=== PATIENT | female | born 1990 | race Caucasian/White ===

== ENCOUNTER 2017-03-23 01:33 | Emergency (ER) | payer OTHER ==
[~2017-03-23] VITALS: Ht 162.6 cm; Wt 78.7 kg
[2017-03-23 01:47] VITALS: TEMP 37; Ht 162.6 cm; Wt 78.7 kg
[2017-03-23] MEDS ORDERED: IBUP-1451 PO (02:11)
[2017-03-23 02:29] LABS: BUN/CREATININE RATIO 13.7 (10-20); CALCIUM 8.9 mg/dl (8.5-10.1); CREATININE 0.86 mg/dl (0.60-1.20); POTASSIUM 3.4 mmol/L (3.5-5.1)
[2017-03-23] MEDS ORDERED: LORAZEPAM 1 MG TAB SL STA (03:01)
[2017-03-23 08:35] VITALS: BP 111/76; PULSE 98; O2SAT 97
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
== END 2017-03-23 08:49 | disposition home or self-care (01) ==
LOC: C.EDA 01:34
DX: F10.129 Alcohol abuse with intoxication, unspecified (principal); Y90.8 Blood alcohol level of 240 mg/100 ml or more; F17.200 Nicotine dependence, unspecified, uncomplicated

== ENCOUNTER → 2017-11-21 | Outpatient (CLI) | payer OTHER ==
[~2017-11-21] MED LIST: IBUP-1451 PO
== END | disposition home or self-care (01) ==
LOC: C.LABSPEC 15:50
PROVIDERS: ATTEND Obstetrics & Gynecology
DX: Z34.01 Encounter for supervision of normal first pregnancy, first trimester (principal); Z3A.00 Weeks of gestation of pregnancy not specified

== ENCOUNTER → 2017-11-29 | Outpatient (CLI) | payer OTHER ==
[2017-11-29 14:37] LABS: BASO % 0.2 %; BASO ABS # 0.02 K/uL (0-0.2); EOS % 1.6 %; EOS ABS # 0.13 K/uL (0-0.5); HEMATOCRIT 36.1 % (37-47); HEMOGLOBIN 12.5 g/dL (12.0-16.0); IG# 0.01 K/uL (0.00-0.02); LYMPH % 28.2 %; LYMPH ABS # 2.27 K/uL (1.2-3.4); MEAN CELL VOLUME 86.2 fL (80-100); MEAN CORPUSCULAR HEMOGLOBIN 29.8 pg (25-34); MEAN CORPUSCULAR HGB CONC 34.6 g/dl (32-36); MEAN PLATELET VOLUME 11.6 fL (7.4-10.4); MONO % 7.5 %; NEUT % 62.4 %; NEUT ABS # 5.02 K/uL (1.4-6.5); PLATELET COUNT 242 K/uL (130-400); RED CELL DISTRIBUTION WIDTH CV 13.1 % (11.5-14.5); RED CELL DISTRIBUTION WIDTH SD 41.7 fL (36.4-46.3); WHITE BLOOD COUNT 8.05 K/uL (4.8-10.8)
== END | disposition home or self-care (01) ==
LOC: C.LAB1850 12:46
PROVIDERS: ATTEND Obstetrics & Gynecology
DX: Z34.01 Encounter for supervision of normal first pregnancy, first trimester (principal)

== ENCOUNTER → 2017-11-29 | Outpatient (CLI) | payer OTHER | END | disposition home or self-care (01) | LOC: C.LABSPEC 15:39 | PROVIDERS: ATTEND Obstetrics & Gynecology | DX: Z34.01 Encounter for supervision of normal first pregnancy, first trimester (principal) ==

== ENCOUNTER 2021-05-28 17:22 | Observation (INO) ==
[2021-05-28] MEDS ORDERED: MoRPHine SULFATE 4 MG/ML 1 ML CARP\\VIAL IV STA (20:04)
[2021-05-28] MEDS ORDERED: SODIUM CHLORIDE 0.9% 500 ML IV ONE (20:05)
--- NOTE | 2021-05-28 20:09 | Emergency Department Note ---
Impression & Plan Facial swelling, Odontogenic infection of jaw ED Provider Note NAME: GRETCHEN LEVI AGE: 30 SEX: F : 1990 ARRIVES VIA: Walk-In INFORMANT: Patient ED PROVIDER(S): Radames Jerome DO CHIEF COMPLAINT: left sided jaw swelling HPI: Patient is a 30-year-old female who presents to the ER as she chipped her tooth about a week ago chewing on seeds. 2 days ago she started having significant amount of pain on the left lower jaw. This morning she woke up and she has a moderate amount of swelling. She has been on clindamycin but has been worsening. Admits pain with movement of the jaw. Pain is a 6 out of 10. No headache or change in vision. No chest pain or shortness of breath. No nausea vomiting or diarrhea. No fevers. No dysuria urgency or frequency. She does have a dentist but cannot get into them until next week. ROS: See above HPI for pertinent positives & negatives. A total of 10 systems reviewed and were otherwise negative. PAST MEDICAL HISTORY:See Below PAST SURGICAL HISTORY:See Below FAMILY HISTORY:See Below SOCIAL HISTORY:See Below HOME MEDICATIONS:See Below ALLERGIES:See Below VITALS:See Below PHYSICAL EXAMINATION: GENERAL: Sitting up in bed, alert, well appearing, well nourished, no distress, non-toxic EYE EXAM: normal conjunctiva. PERRL and EOM's grossly intact. OROPHARYNX: Left third molar is broken with a significant amount of swelling below and lateral tracking to the jawline NECK: supple, no nuchal rigidity, swelling below the left lower jaw. LUNGS: Clear to auscultation. Normal chest wall mechanics HEART: no murmurs, S1 normal and S2 normal ABDOMEN: abdomen soft, non-tender, normo-active bowel sounds, no masses, no rebound or guarding. UPPER EXTREMITIES: upper extremities are grossly normal. LOWER EXTREMITIES: No pitting edema. NEURO EXAM: Normal sensorium, cranial nerves II-XII grossly intact, normal spe ech, no gross weakness of arms, no gross weakness of legs. MEDICAL DECISION MAKING: Patient is a 30-year-old female who presents the ER for left jaw swelling. IV was established blood was obtained. Labs show no significant leukocytosis or anemia. BMP was unremarkable. Covid was negative. CT of the face shows a significant mount of swelling over the left lower jaw. This progressed while in the ER. Initially discussed with Dr. Paula in regards to following up as an outpatient he was agreeable. Reevaluated the patient and she had worsening swelling. She is given steroids and antibiotics. Discussed with the patient and admitted her to the hospitalist. Had secondary repaged Dr. Paula to let him know that she was being admitted. Patient was given multiple rounds of IV narcotics. Triage Nursing notes reviewed. Limited review of prior medical records performed Vital Signs: reviewed and remarkable for HTN Differential diagnosis: Dental caries, dental abscess, Lud[place]igs angina, Vincent angina, dental fracture, facial cellulitis, parotitis, osteomyelitis, sinus infection, peritonsillar abscess. ER treatment provided: See below Diagnostics interpreted by me: ECG: none Cardiac Monitoring: An order was placed for continuous cardiac monitoring. The monitor shows a rate of 89 with sinus rhythm. Laboratory studies: As stated above and show below. Imaging studies: CT shows significant swelling of the left lower jaw Consultation(s): Discussed with Dr. Christoph Paula as discussed above Discussed with the hospitalist for further evaluation Procedures: none Critical Care: None Past Med/Surg History Medical History Alcohol use disorder Low-lying placenta Patient denies medical problems Surgical History History of appendectomy History of tooth extraction [place] teeth removed Social History Smoking Status: Former smoker Tobacco Type: Cigarettes Cigarettes Per Day: 5-6; Second Hand Exposure: No; Hx Alcohol Use: No Hx Substance Use: No Preferred Language: Iranian Communication Ability: Effective Carousel Attendant Required: No Beliefs That Will Affect Care: None marital status: Single Current Living Situation: Spouse Current Living Situation Comment: Lives with boyfriend David Feels Safe at Home: Yes Assistive Devices: None Allergies Allergies Allergy/AdvReac Type Severity Reaction Status Date / Time No Known Allergies Allergy Unverified 05/28/21 20:21 Home Meds Home Medications Medication Instructions Recorded Confirmed buprenorphine HCl 8 mg sublingual 4 mg SUBLINGUAL BID 05/01/18 05/28/21 tablet chlorhexidine gluconate 0.12 % 0 ml PO UD 05/28/21 05/28/21 mouthwash clindamycin HCl 150 mg capsule 150 mg PO DAILY 05/28/21 05/28/21 Results & Data (ED) Vital Signs Vital Signs - 24 hr 05/28/21 17:53 05/28/21 21:28 Temperature 36.3 C L Temperature Source Temporal Artery Scan Pulse Rate 86 Pulse Rate [Finger] 95 H Respiratory Rate 16 22 Blood Pressure 158/98 H Blood Pressure [Right Arm] 160/103 H Blood Pressure Mean 118 Blood Pressure Mean [Right Arm] 122 Pulse Oximetry 97 98 Oxygen Delivery Method Room Air Room Air Sepsis Recent Fever Within 48 Hours No Sepsis New/Unexplained Change in Mental Status No Sepsis Action Taken by Nursing No Action Required Laboratory Data Result diagrams: 05/28/21 20:25 05/28/21 20:25 Lab Results 05/28/21 05/28/21 05/28/21 Range/Units 20:25 20:25 22:36 WBC 9.91 (4.8-10.8) K/uL RBC 4.39 (4.2-5.4) M/uL Hgb 12.8 (12.0-16.0) g/dL Hct 38.8 (37-47) % MCV 88.4 (80-100) fL MCH 29.2 (25-34) pg MCHC 33.0 (32-36) g/dL RDW Std Deviation 40.2 (36.4-46.3) fL RDW Coeff of Lianna 12.5 (11.5-14.5) % Plt Count 247 (130-400) K/uL MPV 11.7 H (7.4-10.4) fL Immature Gran % (Auto) 0.2 % Neut % (Auto) 72.4 % Lymph % (Auto) 20.4 % Mccreary % (Auto) 5.2 % Eos % (Auto) 1.6 % Baso % (Auto) 0.2 % Neut # (Auto) 7.17 H (1.4-6.5) K/uL Lymph # (Auto) 2.02 (1.2-3.4) K/uL Mccreary # (Auto) 0.52 (0.11-0.59) K/uL Eos # (Auto) 0.16 (0-0.5) K/uL Baso # (Auto) 0.02 (0-0.2) K/uL Immature Gran # (Auto) 0.02 (0.00-0.02) K/uL Sodium 136 (136-145) mmol/L Potassium 4.0 (3.5-5.1) mmol/L Chloride 106 (98-107) mmol/L Carbon Dioxide 24 (21-32) mmol/L Anion Gap 6.0 (3-11) BUN 13 (7-18) mg/dl Creatinine 0.90 (0.6-1.2) mg/dl Est Cr Clr Drug Dosing 101.3 ml/min Est GFR ( Amer) 98.1 ml/min Est GFR (Non-Af Amer) 84.6 ml/min BUN/Creatinine Ratio 14.4 (10-20) Glucose 103 H (70-99) mg/dl Calcium 8.8 (8.5-10.1) mg/dl Specimen Hemolysis COVID-19 Eval Order Covid19 at [facility] SARS-CoV-2 (PCR) (Negative) 05/28/21 Range/Units 22:36 WBC (4.8-10.8) K/uL RBC (4.2-5.4) M/uL Hgb (12.0-16.0) g/dL Hct (37-47) % MCV (80-100) fL MCH (25-34) pg MCHC (32-36) g/dL RDW Std Deviation (36.4-46.3) fL RDW Coeff of Lianna (11.5-14.5) % Plt Count (130-400) K/uL MPV (7.4-10.4) fL Immature Gran % (Auto) % Neut % (Auto) % Lymph % (Auto) % Mccreary % (Auto) % Eos % (Auto) % Baso % (Auto) % Neut # (Auto) (1.4-6.5) K/uL Lymph # (Auto) (1.2-3.4) K/uL Mccreary # (Auto) (0.11-0.59) K/uL Eos # (Auto) (0-0.5) K/uL Baso # (Auto) (0-0.2) K/uL Immature Gran # (Auto) (0.00-0.02) K/uL Sodium (136-145) mmol/L Potassium (3.5-5.1) mmol/L Chloride (98-107) mmol/L Carbon Dioxide (21-32) mmol/L Anion Gap (3-11) BUN (7-18) mg/dl Creatinine (0.6-1.2) mg/dl Est Cr Clr Drug Dosing ml/min Est GFR ( Amer) ml/min Est GFR (Non-Af Amer) ml/min BUN/Creatinine Ratio (10-20) Glucose (70-99) mg/dl Calcium (8.5-10.1) mg/dl Specimen Hemolysis COVID-19 Eval Order SARS-CoV-2 (PCR) NEGATIVE (Negative) Administered Medications Discontinued Medications Dexamethasone Sodium Phosphate (DexamethasonePf 10 Mg/Ml Vial) 10 mg IV NOW ONE Stop: 05/28/21 21:52 Last Admin: 05/28/21 21:55 Dose: 10 mg Documented by: [id number] Sodium Chloride (Nss) 500 mls @ 999 mls/hr IV .Q31M ONE Stop: 05/28/21 20:35 Last Infusion: 05/28/21 21:24 Dose: 0 mls/hr Documented by: [id number] Admin: 05/28/21 20:24 Dose: 999 mls/hr Documented by: [id number] Ampicillin Sodium/Sulbactam Sodium 3,000 mg/ Sodium Chloride 108 mls @ 200 mls/hr IV NOW STA; Protocol Stop: 05/28/21 22:23 Last Infusion: 05/28/21 23:54 Dose: 0 mls/hr Documented by: [id number] Admin: 05/28/21 22:00 Dose: 200 mls/hr Documented by: [id number] Ioversol (Optiray 320 100ml) 95 ml IV ONCE ONE Stop: 05/28/21 21:19 Last Admin: 05/28/21 21:19 Dose: 95 ml Documented by: [id number] Morphine Sulfate (Morphine Sulfate 4 Mg/Ml 1 Ml Carp\Vial) 4 mg IV NOW STA Stop: 05/28/21 20:05 Last Admin: 05/28/21 20:25 Dose: 4 mg Documented by: [id number] Morphine Sulfate (Morphine Sulfate 10 Mg/Ml Carp/Vial) 6 mg IV NOW STA Stop: 05/28/21 22:21 Last Admin: 05/28/21 22:27 Dose: 6 mg Documented by: [id number] Discharge Plan Visit Data Chief Complaint: Dental/Oral Stated Complaint: ABCESSED TOOTH LT SIDE ED Provider: Radames Jerome Discharge Problem: Facial swelling, Odontogenic infection of jaw Discharge Instructions Interventions: ED Discharge Assessment Last Done: 05/29/21 00:56
[2021-05-28 21:04] LABS: BUN Creatinine Ratio 14.4 (10-20); Calcium 8.8 mg/dl (8.5-10.1); Creatinine Clr Calc Pharmacy 101.3 ml/min; Est GFR (African American) 98.1 ml/min; Est GFR (Non-African American) 84.6 ml/min
[2021-05-28 21:16] LABS: Basophils # (auto) 0.02 K/uL (0-0.2); Basophils % (auto) 0.2 %; Eosinophils # (auto) 0.16 K/uL (0-0.5); Eosinophils % (auto) 1.6 %; Hematocrit (blood only) 38.8 % (37-47); Hemoglobin 12.8 g/dL (12.0-16.0); Immature Granulocytes # (auto) 0.02 K/uL (0.00-0.02); Immature Granulocytes % (auto) 0.2 %; Lymphocytes # (auto) 2.02 K/uL (1.2-3.4); Lymphocytes % (auto) 20.4 %; Mean Corpuscular Hemoglobin 29.2 pg (25-34); Mean Corpuscular Volume 88.4 fL (80-100); Mean Platelet Volume 11.7 fL (7.4-10.4); Monocytes # (auto) 0.52 K/uL (0.11-0.59); Monocytes % (auto) 5.2 %; Neutrophils # (auto) 7.17 K/uL (1.4-6.5); Neutrophils % (auto) 72.4 %; Platelet Count 247 K/uL (130-400); RDW Coefficient of Variation 12.5 % (11.5-14.5); RDW Standard Deviation 40.2 fL (36.4-46.3); Red Blood Count 4.39 M/uL (4.2-5.4); White Blood Count 9.91 K/uL (4.8-10.8)
[2021-05-28] MEDS ORDERED: OPTIRAY 320 100ml IV ONE (21:18)
[2021-05-28] MEDS ORDERED: dexAMETHasone**PF** 10 MG/ML VIAL IV ONE (21:51)
[2021-05-28] MEDS ORDERED: AMPICILLIN/SULBACTAM SOD 3,000 MG in 0.9 % SODIUM CHLORIDE 100 ML IV STA (21:51)
[2021-05-28] MEDS ORDERED: MoRPHine SULFATE 10 MG/ML CARP/VIAL IV STA (22:20)
[2021-05-28] MEDS ORDERED: ACETAMINOPHEN 325 MG TAB PO PRN (22:47)
[2021-05-28] MEDS ORDERED: ONDANSETRON INJ 2 MG/ML 2 ML VIAL IV PRN (22:47)
[2021-05-28] MEDS ORDERED: KETOROLAC 30 MG/ML VIAL IV PRN (22:51)
--- NOTE | 2021-05-28 22:56 | History & Physical Report ---
Date of Service May 28, 2021 Assessment & Plan (1) Odontogenic infection of jaw: (2) Facial swelling: (3) Alcohol use disorder: Plan: 30 yo F Hx alcohol use disorder on buprenorphine admitted for odontogenic infection and facial swelling with outpatient antibiotics failure. Odontogenic infection, facial swelling: With two days of facial pain and swelling, worsening today despite starting clindamycin yesterday by Urgentcare clinic. CT Face STATRad showed left sided soft tissue swelling and edema without focal drainable fluid collection or soft tissue gas, enlarged submandibular lymph nodeand posterior left molar dental rico with periapical lucency and osseous dehiscence. Will collect blood cultures; unfortunately did receive Unasyn x1 about 1-2 hours prior to collection. Continue Unasyn 3g q6h. Dexamethasone 4mg IV q8h for facial swelling. No concern for airway compromise. Defer narcotic pain medications as much as possible in favor of tylenol/toradol. FS contacted by ER provider; no indication at this time for inpatient consult for urgent tooth removal however will be seen as an outpatient. Alcohol use disorder: On daily buprenorphine therapy. Continue this. No recent alcohol use, will not start AWSS protocol at this time. Code Status: FULL CODE FEN: Clear liquid diet DVT ppx: SCDs, ambulate on demand Dispo: Med/Surg History of Present Illness Chief Complaint: oral pain and swelling Primary Care Provider: Benitez Mason, DO 30 yo F Hx alcohol use disorder on buprenorphine presented to the ER for worsening left lower jaw pain and swelling. She reports that two days ago her lower left molars started hurting. She was seen yesterday at an Urgentcare and put on clindamycin. She reports that today despite antibiotics her facial pain and swelling were getting worse prompting her arrival to the ER. In the ER patient's vitals were normal, labwork including WBC count normal. CT face showed left sided soft tissue swelling and edema without focal drainable fluid collection or soft tissue gas, enlarged submandibular lymph node, and posterior left molar dental rico with periapical lucency and osseous dehiscence. Dr. Paula ([facility]) recommended IV antibiotics and outpatient consult to his office. She received Unasyn in the ER as well as dexamethasone for her facial swelling. On my interview patient denied chest pain, SOB, difficulty swallowing, recent fevers or chills. She does have a dentist but has not seen one since the beginning of the COVID 19 pandemic. Allergies Allergy/AdvReac Type Severity Reaction Status Date / Time No Known Allergies Allergy Unverified 05/28/21 20:21 Home Medications Medication Instructions Recorded Confirmed Type buprenorphine HCl 8 mg sublingual 4 mg SUBLINGUAL BID 05/01/18 05/28/21 History tablet chlorhexidine gluconate 0.12 % 0 ml PO UD 05/28/21 05/28/21 History mouthwash amoxicillin 875 mg-potassium 1 tab PO BID 10 Days #20 tab 05/29/21 Rx clavulanate 125 mg tablet (Augmentin) dexamethasone 6 mg tablet 6 mg PO DAILY 3 Days #3 tab 05/29/21 Rx Past Med/Surg History Medical History Alcohol use disorder Low-lying placenta Patient denies medical problems Surgical History History of appendectomy History of tooth extraction [place] teeth removed Social History Smoking Status: Former smoker Tobacco Type: Cigarettes Cigarettes Per Day: 5-6; Second Hand Exposure: No; Hx Alcohol Use: Yes Alcohol type: wine Hx Substance Use: No Preferred Language: Bulgarian Communication Ability: Effective Screw Supervisor Required: No Beliefs That Will Affect Care: None marital status: Single Current Living Situation: Significant Other Current Living Situation Comment: Lives with boyfriend David Feels Safe at Home: Yes Assistive Devices: None Review of Systems Review of Systems: All systems reviewed & are unremarkable except as noted in HPI & below Constitutional: + malaise; no fever and no chills Respiratory: no cough and no dyspnea Cardiovascular: no chest pain, no palpitations and no edema Gastrointestinal: no abdominal pain, no constipation and no diarrhea/loose stools Genitourinary: no dysuria and no hematuria Physical Exam Constitutional: WD/WN, vitals as above Eyes: PERRL, conjunctivae normal, anicteric sclerae ENMT: poor dentition; erythema and mild swelling noted around left lower molars. No noted airway abnormalities on oral exam. No tonsillar or uvular swelling/erythema Neck: normal visual inspection Respiratory: normal respiratory effort, lungs clear to auscultation Cardiovascular: RRR, no murmur, no edema Gastrointestinal (Abdomen): normal bowel sounds, soft, nontender, no hepatosplenomegaly Musculoskeletal: no cyanosis or clubbing, extremities motor strength 5/5 Skin: no rashes, warm and dry significant swelling to left lower jaw, no erythema; no fluctuance No swelling over anterior neck Neurologic: AAOx3, normal speech Bilateral UE, LE, and face without sensory or motor deficits. Psychiatric: A+Ox3, euthymic affect Results & Data Results & Data ([facility]) Vital Signs (Past 12 Hours) Vital Signs Temp Pulse Pulse Resp BP BP Pulse Ox 05/28/21 21:28 95 H 22 160/103 H 98 05/28/21 17:53 36.3 C L 86 16 158/98 H 97 Code Status & VTE Plan VTE Prophylaxis Plan VTE Prophylaxis will be ordered: Yes Supervising Physician Co-Signing Physician Notes Attending addendum: I have physically seen this patient, have supervised the medical residents activities, and agree with the H&P unless as otherwise noted. Assessment and Plan: Dental infection with facial swelling- Given dexamethasone 10 mg IV, Unasyn 3 g IV in the ED and normal saline 500 mL from the ED Continue dexamethasone 4 mg IV every 8 hours Unasyn 3 g IV every 6 hours Phone consult by ED to [facility], suggest no urgent need for surgery, and they will follow patient the outpatient setting after discharge Alcohol use disorder- Continue buprenorphine No indication for AWSS protocol at this time, as patient had no recent alcohol use Remaining orders and notations as noted Resident Activity Tracking Resident Involvement: Resident Care Provided Care Provided: Adult [facility]
[2021-05-29] MEDS: AMPICILLIN/SULBACTAM SOD 3,000 MG in 0.9 % SODIUM CHLORIDE 100 ML IV SCH ×3 (03:51→15:59)
[2021-05-29] MEDS: dexAMETHasone 4 MG in SYRINGE 0 ML IV SCH ×2 (06:10→13:49)
--- NOTE | 2021-05-29 07:47 | CT Scan Report ---
CT facial bones w con HISTORY: swelling left lower jaw tracking into neck TECHNIQUE: Multiaxial CT images of the maxillofacial region was performed reformatted in the sagittal and coronal plane following the use of intravenous contrast. COMPARISON STUDY: None. FINDINGS: The visualized brain parenchyma and orbits are unremarkable. The pterygopalatine fossa are well-maintained. The paranasal sinuses and mastoid air cells are clear. A few scattered dental caries are noted. Extensive left mandibular/submandibular soft tissue swelling/edema. There is reactive lef t submandibular lymphadenopathy. There is phlegmon without a loculated fluid collection to suggest ab scess within the left mandibular soft tissues. There is a periapical lucency measuring 3 mm at ADA 18 with cortical breakthrough along the lingual surface. IMPRESSION: Extensive soft tissue swelling and phlegmon adjacent to the left hemimandible without loculated fluid collections to suggest an abscess. Periapical lucency demonstrating focal cortical breakthrough gwen g the lingual surface of ADA 18. This may account for the soft tissue abnormality. ACT 112: Negative or not required by law. Electronically signed by: Anupam Valdes M.D. 05/29/2021 7:46 AM
[2021-05-29] MEDS ORDERED: buprenorphine HCL 2 MG SUBL SL SCH (09:00)
--- NOTE | 2021-05-29 18:40 | Discharge Summary ---
Date of Service May 29, 2021 Admission HPI Per Admitting Provider 30 yo F Hx alcohol use disorder on buprenorphine presented to the ER for worsening left lower jaw pain and swelling. She reports that two days ago her lower left molars started hurting. She was seen yesterday at an [facility] and put on clindamycin. She reports that today despite antibiotics her facial pain and swelling were getting worse prompting her arrival to the ER. In the ER patient's vitals were normal, labwork including WBC count normal. CT face showed left sided soft tissue swelling and edema without focal drainable fluid collection or soft tissue gas, enlarged submandibular lymph node, and posterior left molar dental rico with periapical lucency and osseous dehiscence. Dr. Paula ([facility] [place]) recommended IV antibiotics and outpatient consult to his office. She received Unasyn in the ER as well as dexamethasone for her facial swelling. On my interview patient denied chest pain, SOB, difficulty swallowing, recent fevers or chills. She does have a dentist but has not seen one since the beginning of the COVID 19 pandemic. Admission Exam Per Admitting Provider Constitutional: WD/WN, vitals as above Eyes: PERRL, conjunctivae normal, anicteric sclerae ENMT: poor dentition; erythema and mild swelling noted around left lower molars. No noted airway abnormalities on oral exam. No tonsillar or uvular swelling/erythema Neck: normal visual inspection Respiratory: normal respiratory effort, lungs clear to auscultation Cardiovascular: RRR, no murmur, no edema Gastrointestinal (Abdomen): normal bowel sounds, soft, nontender, no hepatosplenomegaly Musculoskeletal: no cyanosis or clubbing, extremities motor strength 5/5 Skin: no rashes, warm and dry significant swelling to left lower jaw, no erythema; no fluctuance No swelling over anterior neck Neurologic: AAOx3, normal speech Bilateral UE, LE, and face without sensory or motor deficits. Psychiatric: A+Ox3, euthymic affect Principal Diagnosis Odontogenic infection Discharge Exam General: A&Ox3. NAD. Cooperative. HEENT: Trace swelling and tenderness to palpation at left mid jaw. Uvula midline. Mild swelling around lower left molars appreciated. No tongue swelling. Pulm: CTAB A&P. -wheezes, -rales, -rhonchi. Symmetrical chest rise. No increase work of breathing. No respiratory distress. Cardiac: RRR, -mrg. Radial pulses intact and symmetrical. Abdominal: Nontender, nondistended, soft. BS present. Discharge Data Allergies Allergy/AdvReac Type Severity Reaction Status Date / Time No Known Allergies Allergy Unverified 05/28/21 20:21 Consultations 05/28/21 22:15 ED Decision to Admit Stat Ordered Studies 05/28/21 20:04 CT facial bones w con Urgent Hospital Course (1) Odontogenic infection of jaw: 30 yo F Hx alcohol use disorder on buprenorphine admitted for odontogenic infection and facial swelling with outpatient antibiotics failure. To do as outpatient: 1. Continue Augmentin twice daily 2. Follow-up with oral maxillofacial surgery for odontogenic infection 3. Repeat CBC/BMP as recommended by PCP/facial surgery 4. Routine PCP follow-up Lower left odontogenic infection, facial swelling: Patient reports she bit into a pumpkin seed which caused a penetrating injury to her lower gum slightly before start of symptoms Within 2 days developed severe facial pain and swelling, presented to urgent care and was discharged on clindamycin but continued to worsen with no improvement CT: Extensive soft tissue swelling and phlegmon adjacent to the left hemimandible without loculated fluid collections to suggest an abscess. Periapical lucency demonstrating focal cortical breakthrough along the lingual surface of ADA 18. This may account for the soft tissue abnormality. Case was discussed with oral maxillofacial surgery, Dr. Christoph Paula, who recommended initial IV treatment with follow-up to his office as outpatient Patient was treated with Unasyn 3 g every 6 hours and dexamethasone 4 mg IV every 8 hours for facial swelling. Did not show signs of airway compromise during admission Marisol had rapid clinical improvement on the above, felt some tenderness but minimal swelling at time of discharge Return precautions were discussed, patient was discharged to close follow-up with [facility] [place] office Discharged on Augmentin twice daily and a brief course of Decadron Adequate pain control with Tylenol. Patient with history of substance use on buprenorphine, in remission. Narcotic pain control was not required or used and pain control was adequate on discharge (2) Facial swelling: (3) Alcohol use disorder: Total Time Total Time Spent Total Time Spent (In Minutes): Total time spent preparing discharge day of discharge including direct patient care, documentation, coordination of care, and review of labs and images approximately 45 minutes Discharge Plan Discharge Items Patient Disposition: Home - Self-Care Reason For Visit: ODONTIC INFECTION DESPITE ABX Discharge Diagnosis: Odontogenic Infection Activity: Resume your previous activity Non-emergency contact: Primary Care Provider Call non-emergency contact if: you have any medication questions, your symptoms worsen, your pain is not controlled, your pain is concerning for you and you have a fever Follow-up/Referrals: Benitez Mason DO [Primary Care Provider] - 06/06/21 9:15 am Christoph Paula DMD [Physician] - ([place] office will arrange.) Diet: Regular Addtl Attending Provider Instructions: You were seen in the hospital for a dental infection. You were treated with IV antibiotics and steroids and clinically improved. Your case was discussed with Dr. Paula, a oromaxillofacial surgeon. You have had followup scheduled as below. You have had medications prescribed as below. You have been prescribed an antibiotic, Augmentin. Please take Augmentin 875/125mg twice daily for 10 days. Please followup with Dr. Paula as below within 2 days for re-evaluation. If your symptoms worsen, please return to the emergency department for re-evaluation. You have been prescribed a steroid for swelling, dexamethasone. Please take dexamethasone 6mg daily for 3 additional days. A followup appointment is being scheduled for you with Dr. Paula. You should be seen seen within 48 hours. You should receive a call to confirm this appointment. If you do not receive a call within 48 hours to confirm this appointment, or need to change this appointment, please call the provider's office at [phone]. A followup appointment is being scheduled for you with your PCP. You should be seen seen within 2 weeks. You should receive a call to confirm this appointment. If you do not receive a call within 48 hours to confirm this appointment, or need to change this appointment, please call the provider's office. If you develop any new or worsening symptoms including fever, chills, sweats, chest pain, chest pressure, difficulty breathing, increased facial swelling, wheezing, or voice change, uncontrolled nausea/vomiting, rash, wheezing, passing out or nearly passing out, bleeding, black/bloody bowel movements, or other new or concerning symptoms please call your primary care physician, or call [phone] for re-evaluation in the emergency department. Pending Studies at Discharge: No Stand-Alone Forms: My [employer], Smoking Cessation Medications and DC Order Prescriptions: New dexamethasone 6 mg tablet 6 mg PO DAILY 3 Days Qty: 3 RF: 0 amoxicillin-pot clavulanate [Augmentin] 875-125 mg tablet 1 tab PO BID 10 Days Qty: 20 RF: 0 Continued buprenorphine HCl 8 mg Tablet, Sublingual 4 mg SUBLINGUAL BID RF: 0 chlorhexidine gluconate 0.12 % mouthwash 0 ml PO UD RF: 0 Discontinued clindamycin HCl 150 mg capsule 150 mg PO DAILY RF: 0 Discharge Orders: Discharge Order (Routine); Ordered 05/29/21 Ordered By: Javy Abdalla Admission Data Admit Date/Time: 05/28/21 22:47 Attending Provider: Javy Abdalla Admit Provider: Esthela Brown Primary Care Provider: Benitez Mason Other Providers: Alfonso Camacho Other Interventions: Discharge Summary Assessment (RN) Last Done: 05/29/21 14:31 Coding Level of Care Code 42345 OBS Care - Discharge Diagnoses Odontogenic infection of jaw M27.2 Facial swelling R22.0 Alcohol use disorder
--- NOTE | 2021-05-29 22:00 | Billing Data ---
Date of Service May 29, 2021 Coding Level of Care Code INT OBSERVATION CARE 70M LVL 3
== END 2021-05-29 17:13 | disposition home or self-care (01) ==
LOC: ED 17:22 → 3E 17:22 → SUATTDRO 22:47 → 3E 05-29 00:56